=== PATIENT | female | born 2005 | race Caucasian/White ===

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

== ENCOUNTER → 2023-05-31 09:42 | Outpatient (BNVA) | payer BC, SELFPAY | PROVIDERS: PCP Registered Nurse; Visit Provider Registered Nurse | DX: E03.9 Hypothyroidism, unspecified (principal) | CPT/HCPCS: 80053; 84443 ==

== ENCOUNTER → 2024-06-04 11:30 | Outpatient (BNVA) | payer BC, SELFPAY | PROVIDERS: PCP Registered Nurse; Visit Provider Registered Nurse | DX: E03.9 Hypothyroidism, unspecified (principal); Z78.9 Other specified health status | CPT/HCPCS: 84443; 87070; 87205 ==

== ENCOUNTER → 2024-10-18 16:21 | Outpatient (BNVA) | payer BC, SELFPAY | PROVIDERS: PCP Registered Nurse; Visit Provider Registered Nurse | DX: E03.9 Hypothyroidism, unspecified (principal); M25.50 Pain in unspecified joint; E55.9 Vitamin D deficiency, unspecified; E53.8 Deficiency of other specified B group vitamins | CPT/HCPCS: 82306; 82607; 84443; 85025; 85651; 86140 ==

== ENCOUNTER → 2025-01-15 10:53 | Outpatient (BNVA) | payer MEDICAID, SELFPAY | PROVIDERS: PCP Registered Nurse; Visit Provider Registered Nurse | DX: E55.9 Vitamin D deficiency, unspecified (principal) | CPT/HCPCS: 82306 ==